=== PATIENT | male | born 1960 | race Caucasian/White ===

== ENCOUNTER 2018-04-06 09:41 | Outpatient (CLI) | payer BC ==
--- NOTE | 2018-04-06 15:41 | NM ---
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 TECHNIQUE: Anterior and posterior whole body imaging, as well as lateral imaging of the cervical spine, obtained following the intravenous administration of 23.6 millicuries of technetium 99m labeled MDP. FINDINGS: There is physiologic radiotracer activity overlying the kidneys and urinary bladder. On the posterio r imaging, there is a focus of increased radiotracer activity to the right of midline, within the mid cervical spine. This is seen on the lateral imaging of the cervical spine and is felt to represent activity associated with prominent facet hypertrophy, when compared to cervical spine MRI. No verteb ral body lesions are seen otherwise. No calvarial, rib, pelvic, or long bone lesions. 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 No scintigraphic evidence of osseous metastatic disease. Austin dy evaluated in consultation with Dr. Fraga. POS: [facility]
== END 2018-04-06 09:42 | disposition home or self-care (01) ==
LOC: NM 09:41
PROVIDERS: ATTEND Anesthesiology Pain Medicine
DX: M89.9 Disorder of bone, unspecified (principal)
CPT/HCPCS: 78306; A9503